=== PATIENT | male | born 1930 | race Two or more races ===

== ENCOUNTER 2017-10-10 15:55 | Inpatient (IN) | payer OTHER ==
[~2017-10-10] VITALS: Ht 167.6 cm; Wt 68.0 kg
[~2017-10-10 15:55] MED LIST: CARVEDILOL6.25 MG; ENALAPRIL MALE2.5 MG PO; IMDUR30 MG; METFORMIN HCL500 MG; PLAVIX75 MG; SIMVASTATIN20 MG
[2017-10-29] MEDS ORDERED: AMIODARONE HCL200 MG PO (14:03)
[2017-10-29] MEDS ORDERED: IPRATROPIU0.2 MG/1 M IH (14:03)
[2017-10-29] MEDS ORDERED: ENALAPRIL MALE2.5 MG PO (14:04)
[2017-10-29] MEDS ORDERED: CARVEDILOL6.25 MG PO (14:04)
[2017-10-29] MEDS ORDERED: ISOSORBIDE DINI20 MG PO (14:05)
[2017-10-29] MEDS ORDERED: HYDRALAZINE HCL25 MG PO (14:05)
[2017-10-29] MEDS ORDERED: PLAVIX75 MG PO (14:06)
[2017-10-29] MEDS ORDERED: MICRO-K 1010 MEQ PO (14:07)
[2017-10-29] MEDS ORDERED: LASIX20 MG PO (14:07)
== END 2017-10-29 14:20 | disposition home or self-care (01) | DRG 193 ==
LOC: ER 15:55 → MEDJ 10-11 18:44 → MEDI 10-11 18:44 → MEDJ 10-11 19:53
PROC: 3E0F7GC Introduction of Other Therapeutic Substance into Respiratory Tract, Via Natural or Artificial Opening (ICD-10-PCS; principal; 2017-10-11)
PROC: 4A12X4Z Monitoring of Cardiac Electrical Activity, External Approach (ICD-10-PCS; 2017-10-14)
PROC: BW24ZZZ Computerized Tomography (CT Scan) of Chest and Abdomen (ICD-10-PCS; 2017-10-15)
PROC: 4A033R1 Measurement of Arterial Saturation, Peripheral, Percutaneous Approach (ICD-10-PCS; 2017-10-16)
PROC: 5A09557 Assistance with Respiratory Ventilation, Greater than 96 Consecutive Hours, Continuous Positive Airway Pressure (ICD-10-PCS; 2017-10-18)
PROC: B246ZZZ Ultrasonography of Right and Left Heart (ICD-10-PCS; 2017-10-18)
PROC: 05H633Z Insertion of Infusion Device into Left Subclavian Vein, Percutaneous Approach (ICD-10-PCS; 2017-10-26)
DX: J18.9 Pneumonia, unspecified organism (principal); I50.23 Acute on chronic systolic (congestive) heart failure; J96.01 Acute respiratory failure with hypoxia; I13.0 Hypertensive heart and chronic kidney disease with heart failure and stage 1 through stage 4 chronic kidney disease, or unspecified chronic kidney disease; I42.0 Dilated cardiomyopathy; N17.8 Other acute kidney failure; N39.0 Urinary tract infection, site not specified; J90 Pleural effusion, not elsewhere classified; I47.2 Ventricular tachycardia; N18.1 Chronic kidney disease, stage 1; E11.22 Type 2 diabetes mellitus with diabetic chronic kidney disease; E78.4 Other hyperlipidemia; E11.21 Type 2 diabetes mellitus with diabetic nephropathy; E86.0 Dehydration; I25.10 Atherosclerotic heart disease of native coronary artery without angina pectoris; B95.2 Enterococcus as the cause of diseases classified elsewhere; I34.0 Nonrheumatic mitral (valve) insufficiency; K80.50 Calculus of bile duct without cholangitis or cholecystitis without obstruction; K52.89 Other specified noninfective gastroenteritis and colitis

== ENCOUNTER 2017-12-27 07:24 | Inpatient (IN) | payer OTHER ==
[~2017-12-27] VITALS: Ht 167.6 cm; Wt 59.0 kg
[~2017-12-27 07:24] MED LIST changes: +AMIODARONE HCL200 MG PO; +CARVEDILOL6.25 MG PO; +HYDRALAZINE HCL25 MG PO; +IPRATROPIU0.2 MG/1 M IH; +ISOSORBIDE DINI20 MG PO; +LASIX20 MG PO; +MICRO-K 1010 MEQ PO; +PLAVIX75 MG PO
== END 2018-01-10 19:30 | disposition home or self-care (01) | DRG 444 ==
LOC: ER 07:24 → MEDJ 19:03 → ICU-2 19:03 → ICU 12-30 01:33 → MEDI 12-31 19:11 → MEDJ 12-31 19:11
PROVIDERS: Internal Medicine Gastroenterology
PROC: 3E0F7GC Introduction of Other Therapeutic Substance into Respiratory Tract, Via Natural or Artificial Opening (ICD-10-PCS; 2017-12-27)
PROC: 4A033R1 Measurement of Arterial Saturation, Peripheral, Percutaneous Approach (ICD-10-PCS; 2017-12-27)
PROC: BW40ZZZ Ultrasonography of Abdomen (ICD-10-PCS; 2017-12-27)
PROC: B246ZZZ Ultrasonography of Right and Left Heart (ICD-10-PCS; 2017-12-28)
PROC: 4A12X4Z Monitoring of Cardiac Electrical Activity, External Approach (ICD-10-PCS; 2017-12-31)
PROC: 0F798DZ Dilation of Common Bile Duct with Intraluminal Device, Via Natural or Artificial Opening Endoscopic (ICD-10-PCS; 2018-01-07)
PROC: 0FPB8DZ Removal of Intraluminal Device from Hepatobiliary Duct, Via Natural or Artificial Opening Endoscopic (ICD-10-PCS; principal; 2018-01-07 11:00)
DX: K80.33 Calculus of bile duct with acute cholangitis with obstruction (principal); I50.23 Acute on chronic systolic (congestive) heart failure; I47.2 Ventricular tachycardia; I13.0 Hypertensive heart and chronic kidney disease with heart failure and stage 1 through stage 4 chronic kidney disease, or unspecified chronic kidney disease; N18.4 Chronic kidney disease, stage 4 (severe); B37.49 Other urogenital candidiasis; I42.0 Dilated cardiomyopathy; N17.8 Other acute kidney failure; J44.1 Chronic obstructive pulmonary disease with (acute) exacerbation; R78.81 Bacteremia; B37.0 Candidal stomatitis; Z95.810 Presence of automatic (implantable) cardiac defibrillator; E11.21 Type 2 diabetes mellitus with diabetic nephropathy; E11.22 Type 2 diabetes mellitus with diabetic chronic kidney disease; I25.10 Atherosclerotic heart disease of native coronary artery without angina pectoris; R09.02 Hypoxemia; I34.0 Nonrheumatic mitral (valve) insufficiency; E11.649 Type 2 diabetes mellitus with hypoglycemia without coma; E78.4 Other hyperlipidemia; B96.29 Other Escherichia coli [E. coli] as the cause of diseases classified elsewhere; E86.0 Dehydration

== ENCOUNTER 2018-12-28 05:57 | Day surgery (SDC) | payer OTHER | END 2018-12-28 10:30 | disposition home or self-care (01) | LOC: AMB-ERCP 05:57 | DX: K80.50 Calculus of bile duct without cholangitis or cholecystitis without obstruction (principal) ==

== ENCOUNTER 2019-06-30 08:33 | Outpatient (CLI) | payer OTHER | END 2019-06-30 08:42 | disposition home or self-care (01) | LOC: SONOGRAMA 08:33 | DX: E04.2 Nontoxic multinodular goiter (principal) ==

== ENCOUNTER 2019-08-07 13:49 | Inpatient (IN) | payer OTHER ==
[~2019-08-07] VITALS: Ht 167.6 cm; Wt 70.0 kg
[2019-08-07] MEDS ORDERED: PROTONIX40 MG (14:14)
[2019-08-07] MEDS ORDERED: COZAAR25 MG (14:14)
[2019-08-07] MEDS ORDERED: LIPITOR20 MG (14:15)
[2019-08-07] MEDS ORDERED: GLIMEPIRIDE1 MG (14:15)
== END 2019-08-09 15:04 | disposition home or self-care (01) | DRG 445 ==
LOC: ER 13:49 → MEDJ 18:12
PROVIDERS: ADMIT Specialist
PROC: 8E0ZXY6 Isolation (ICD-10-PCS; principal; 2019-08-08)
PROC: 4A12X4Z Monitoring of Cardiac Electrical Activity, External Approach (ICD-10-PCS; 2019-08-08)
PROC: 0FPD8DZ Removal of Intraluminal Device from Pancreatic Duct, Via Natural or Artificial Opening Endoscopic (ICD-10-PCS; 2019-08-09)
PROC: 0F798DZ Dilation of Common Bile Duct with Intraluminal Device, Via Natural or Artificial Opening Endoscopic (ICD-10-PCS; 2019-08-09)
DX: K80.43 Calculus of bile duct with acute cholecystitis with obstruction (principal); I50.20 Unspecified systolic (congestive) heart failure; T85.590A Other mechanical complication of bile duct prosthesis, initial encounter; N17.8 Other acute kidney failure; I13.0 Hypertensive heart and chronic kidney disease with heart failure and stage 1 through stage 4 chronic kidney disease, or unspecified chronic kidney disease; I42.0 Dilated cardiomyopathy; Z95.810 Presence of automatic (implantable) cardiac defibrillator; I25.10 Atherosclerotic heart disease of native coronary artery without angina pectoris; E08.21 Diabetes mellitus due to underlying condition with diabetic nephropathy; Z99.81 Dependence on supplemental oxygen; E78.49 Other hyperlipidemia; N18.9 Chronic kidney disease, unspecified

== ENCOUNTER 2020-08-05 11:04 | Day surgery (SDC) | payer OTHER ==
[~2020-08-05 11:04] MED LIST changes: +COZAAR25 MG; +GLIMEPIRIDE1 MG; +LIPITOR20 MG; +PROTONIX40 MG
== END 2020-08-05 15:50 | disposition home or self-care (01) ==
LOC: AMB-ENDOS 11:04
PROVIDERS: ATTEND Internal Medicine Gastroenterology
DX: K80.50 Calculus of bile duct without cholangitis or cholecystitis without obstruction (principal); Z20.822 Contact with and (suspected) exposure to COVID-19

== ENCOUNTER 2021-02-18 09:57 | Outpatient (CLI) | payer OTHER | END 2021-02-18 15:35 | disposition home or self-care (01) | LOC: RAD 09:57 | PROVIDERS: ATTEND Internal Medicine | DX: I10 Essential (primary) hypertension (principal); E03.8 Other specified hypothyroidism; E78.89 Other lipoprotein metabolism disorders; E55.9 Vitamin D deficiency, unspecified; E11.51 Type 2 diabetes mellitus with diabetic peripheral angiopathy without gangrene; E11.9 Type 2 diabetes mellitus without complications; E66.8 Other obesity; G62.89 Other specified polyneuropathies; E11.42 Type 2 diabetes mellitus with diabetic polyneuropathy; Z95.0 Presence of cardiac pacemaker; Z12.11 Encounter for screening for malignant neoplasm of colon; R97.20 Elevated prostate specific antigen [PSA] ==